=== PATIENT | male | born 2005 | race Two or more races ===

== ENCOUNTER 2025-04-17 16:18 | Inpatient (IN) | payer OTHER, SELFPAY ==
[~2025-04-17] VITALS: Ht 165.1 cm; Wt 67.4 kg
[2025-04-17 16:59] LABS: PLATELET COUNT, AUTOMATED 325 10^3/uL (150-450)
[2025-04-17 17:21] LABS: ETHYL ALCOHOL (ETHANOL) < 0.003 % (0.000-0.010)
[2025-04-17 17:23] LABS: ALT/SGPT 22 U/L (7.0-40); AST/SGOT 22 U/L (<34); CALCIUM LEVEL 9.2 MG/DL (8.5-10.1); CARBON DIOXIDE LEVEL 28 MMOL/L (20-31); CHLORIDE LEVEL 104 MMOL/L (98-107); CREATININE FOR GFR 0.77 MG/DL (0.70-1.30); GLOMERULAR FILTRATION RATE > 90.0 (>60); POTASSIUM SERUM 4.1 MMOL/L (3.5-5.1); SALICYLATE LEVEL < 3.0 MG/DL (<30); SODIUM LEVEL 142 MMOL/L (136-145)
[2025-04-17 18:39] LABS: AMPHETAMINES LEVEL URINE NEGATIVE (NEGATIVE); BARBITURATES URINE NEGATIVE (NEGATIVE); BENZODIAZEPINES URINE NEGATIVE (NEGATIVE); CANNABINOIDS URINE NEGATIVE (NEGATIVE); COCAINE METABOLITE URINE NEGATIVE (NEGATIVE); METHADONE URINE NEGATIVE (NEGATIVE); OPIATES URINE NEGATIVE (NEGATIVE); PHENCYCLIDINE URINE NEGATIVE (NEGATIVE)
[2025-04-17] MEDS ORDERED: traZODone 50 MG TAB PO PRN (19:30)
[2025-04-17] MEDS ORDERED: MOM 30 ML SUSPENSION UDC PO PRN (19:30)
[2025-04-17] MEDS ORDERED: MAALOX 30 ML SUSP *UDC PO PRN (19:30)
[2025-04-17] MEDS ORDERED: ACETAMINOPHEN 325 MG TAB PO PRN (19:30)
[2025-04-17] MEDS ORDERED: IBUPROFEN 400 MG TAB PO PRN (19:30)
[2025-04-17] MEDS ORDERED: OLANZapine 5 MG TAB PO PRN (19:30)
[2025-04-17] MEDS ORDERED: HOME MED LIST COMPLETE! XX SCH (19:45)
[2025-04-17 23:49] VITALS: BP 107/79; TEMP 97.3; O2SAT 100
[2025-04-18 06:28] VITALS: BP 110/71; TEMP 98.4; O2SAT 100
[2025-04-18] MEDS: buPROPion **XL** 150 MG TABLET PO SCH (10:24)
[2025-04-18] MEDS: LORazepam 0.5 MG TAB PO ONE (10:24)
[2025-04-18 16:35] VITALS: BP 126/79; TEMP 97.9; O2SAT 99
[2025-04-19 06:22] VITALS: BP 108/59; TEMP 98.6; O2SAT 99
[2025-04-19 15:13] VITALS: BP 121/70; TEMP 97.6; O2SAT 99
[2025-04-19 20:50] VITALS: BP 121/70; TEMP 97.6; O2SAT 99
[2025-04-20 06:18] VITALS: BP 132/62; TEMP 97.9; O2SAT 100
[2025-04-20] MEDS ORDERED: BUPR150T12 PO (06:54)
[2025-04-20] MEDS ORDERED: HYDR-3363 PO (06:54)
== END 2025-04-20 10:05 | disposition home or self-care (01) | DRG 885 ==
LOC: M ED 16:18 → M ED INP 19:29 → M PSY 22:30
PROVIDERS: ADMIT Psychiatry & Neurology Neurology; ATTEND Psychiatry & Neurology Neurology
DX: F33.1 Major depressive disorder, recurrent, moderate (principal); R45.851 Suicidal ideations; F41.9 Anxiety disorder, unspecified; Z91.51 Personal history of suicidal behavior; F17.290 Nicotine dependence, other tobacco product, uncomplicated; Z81.8 Family history of other mental and behavioral disorders; Z62.819 Personal history of unspecified abuse in childhood

== ENCOUNTER 2025-04-29 12:14 | Emergency (ER) | payer OTHER ==
[~2025-04-29] VITALS: Ht 162.6 cm; Wt 64.6 kg
[~2025-04-29 12:14] MED LIST: BUPR150T12 PO; HYDR-3363 PO
[2025-04-29 13:33] VITALS: BP 116/68; TEMP 98.2; O2SAT 97
== END 2025-04-29 13:36 | disposition home or self-care (01) ==
LOC: M ED 13:22
DX: Z76.0 Encounter for issue of repeat prescription (principal); Z87.820 Personal history of traumatic brain injury